=== PATIENT | male | born 1980 | race Caucasian/White ===

== ENCOUNTER 2016-11-03 23:23 | Emergency (ER) | payer OTHER ==
[~2016-11-03] VITALS: Ht 172.7 cm; Wt 113.4 kg
[~2016-11-03 23:23] MED LIST: ARIP10TA2 PO; DIVA-20; GENT3.5O18 OD; HYDR-3714 PO; LISI10TA PO; NAPR-243 PO; OMEP-10 PO; OMEP20CA12 PO; PRAZ5CAP PO; SIMV40TA2; VENL75CA55 PO; ZOLP10TA PO
[2016-11-03] MEDS ORDERED: TRIA15OI9 TP (23:59)
[2016-11-03] MEDS ORDERED: PRD20T PO (23:59)
[2016-11-03] MEDS ORDERED: CEPH-507 PO (23:59)
[2016-11-04] MEDS ORDERED: predniSONE 10 MG TAB PO ONE
[2016-11-04] MEDS ORDERED: TETANUS,DIPTH,PERTUSS P/F (BOOSTRIX) 0.5 ML VIAL IM ONE
--- NOTE | 2016-11-04 | ED Integumentary General ---
General Chief Complaint: Bite-Animal/Human/Insect Stated Complaint: POSS SPIDER BITE Nursing Triage Note: Patient reports spider bite to R posterior thigh Source: patient, RN notes reviewed Exam Limitations: no limitations History of Present Illness Time seen by provider: 23:50 Initial Comments Patient presents c/ his significant other c/ c/o having just been bitten by a spider while in bed. [place] it bite him on the back of his right thigh. Brought the spider in c/ him. Does not appear to be either a Black or Brown spider by appearance. Site of bite does itch a little but otherwise he is asymptomatic. Timing/Duration: just prior to arrival Location: extremities (right posterior thigh) Possible Cause: insect bite Modifying Factors: improves with other (none) Associated Symptoms: other (mild itching and a little redness @ bite site) Allergies and Home Medications Allergies Coded Allergies: Iodine (Unverified Allergy, 08/20/10) fish oil (Verified Allergy, 02/01/12) Home Medications Cephalexin 500 Mg Capsule, 1,000 MG PO BID, #30 Ref 0 Prescribed by: SAM VALLE on 11/03/162358 Prednisone 20 Mg Tab, 30 MG PO BID, #12 Ref 0 Prescribed by: SAM VALLE on 11/03/162358 Triamcinolone Acetonide 15 Gm Oint, 1 APPLIC TP BID, #30 Ref 0 Prescribed by: SAM VALLE on 11/03/162358 Constitutional: see HPI Skin: see HPI, other (red, itchy area posterior right thigh) All Other Systems Reviewed Negative Unless Noted: Yes (Negative excepted noted.) Past Foheorc-Okctmx-Acjvsf Hx Patient Social History Alcohol Use: Denies Use Recreational Drug Use: No 2nd Hand Smoke Exposure: No Recent Foreign Travel: No Contact w/Someone Who Travel: No Recent Infectious Disease Expo: No Immunizations Up To Date Date of Pneumonia Vaccine: Mar 03, 2008 Seasonal Allergies Seasonal Allergies: No Surgeries HX Surgeries: No Surgeries: Vasectomy Respiratory Hx Respiratory Disorders: No Cardiovascular Hx Cardiac Disorders: Yes Cardiac Disorders: Hypertension Neurological Hx Neurological Disorders: No Genitourinary Hx Genitourinary Disorders: No Gastrointestinal Hx Gastrointestinal Disorders: Yes Gastrointestinal Disorders: Gastroesophageal Reflux Musculoskeletal Hx Musculoskeletal Disorders: No Endocrine Hx Endocrine Disorders: No HEENT HX ENT Disorders: No Cancer Hx Cancer: No Psychosocial Hx Psychiatric Problems: Yes Behavioral Health Disorders: PTSD Integumentary HX Skin/Integumentary Disorder: Yes Skin/Integumentary Disorders: Psoriasis Blood Transfusions Hx Blood Disorders: No Physical Exam Vital Signs Vital Sign - Last 12Hours 11/03/16 23:46 Temp 98.2 Pulse 77 Resp 18 B/P (MAP) 135/81 Pulse Ox 97 Capillary Refill : Less Than 3 Seconds General Appearance: WD/WN, no apparent distress Cardiovascular: regular rate, rhythm Respiratory: no respiratory distress Extremities: other (quarter sized red area c/ apparent inoculation site in the center c/w an insect bite or sting. Does kem.) Neurologic/Psychiatric: alert, normal mood/affect, oriented x 3 Skin: warm/dry Skin Problem Location: lower extremities (right posterior thigh) Skin Problem Character: blanching, erythema Progress/Results/Core Measures Results/Orders My Orders Orders - SAM VALLE DO Cephalexin Capsule (Keflex Capsule) (11/04/16 00:00) Prednisone Tablet (Deltasone Tablet) (11/04/16 00:00) Dipht,Pertuss(Acell),Tet Adult (Boostrix (11/04/16 00:00) Prednisone Tablet (Deltasone Tablet) (11/04/16 00:15) Medications Given in ED Current Medications Medications Dose Ordered Sig/Lexx Route Start Time Stop Time Status Last Admin Dose Admin Cephalexin HCl 1,000 mg ONCE ONCE PO 11/04/16 00:00 11/04/16 00:01 UNV 11/04/16 00:10 1,000 MG Diphtheria/ Tetanus/Acell Pertussis 0.5 ml ONCE ONCE IM 11/04/16 00:00 11/04/16 00:01 DC 11/04/16 00:11 0.5 ML Prednisone 60 mg ONCE ONCE PO 11/04/16 00:15 11/04/16 00:16 11/04/16 00:10 60 MG Vital Signs/I&O Vital Sign - Last 12Hours 11/03/16 23:46 Temp 98.2 Pulse 77 Resp 18 B/P (MAP) 135/81 Pulse Ox 97 Blood Pressure Mean: 99 Departure Impression Impression: Primary Impression: Spider bite wound Disposition: 01 HOME, SELF-CARE Condition: Stable Departure-Patient Inst. Decision time for Depature: 23:57 Referrals: SORAIDA BRAY MD Patient Instructions: Insect Bites and Stings (DC) Scripts Triamcinolone Acetonide (Triamcinolone Acetonide 0.5% Ointment) 15 Gm Oint 1 APPLIC TP BID for SPIDER BITE, #30 TUBE 0 Refills Prov: SAM VALLE DO 11/03/16 Prednisone (Prednisone) 20 Mg Tab 30 MG PO BID, #12 TAB 0 Refills Prov: SAM VALLE DO 11/03/16 Cephalexin (Keflex) 500 Mg Capsule 1000 MG PO BID, #30 CAP 0 Refills Prov: SAM VALLE DO 11/03/16 SAM VALLE DO Nov 04, 2016 00:00
[2016-11-04] MEDS ORDERED: predniSONE 20 MG TAB ONE (00:03)
[2016-11-04] MEDS ORDERED: CEPHALEXIN 250 MG (KEFLEX) CAP PO ONE ×2 (00:04)
[2016-11-04 00:14] VITALS: BP 135/81
[2016-11-04] MEDS ORDERED: predniSONE 20 MG TAB PO ONE (00:15)
== END 2016-11-04 00:14 | disposition home or self-care (01) ==
LOC: EDUNIT# 23:23 → ER 23:26
DX: T63.391A Toxic effect of venom of other spider, accidental (unintentional), initial encounter (principal)
CPT/HCPCS: 90471; 90715; 99283

== ENCOUNTER → 2017-05-01 | Outpatient (REF) ==
[~2017-05-01] MED LIST changes: +CEPH-507 PO; +PRD20T PO; +TRIA15OI9 TP
--- NOTE | 2017-05-01 10:14 | Diagnostic Imaging Report ---
EXAMINATION: 3 views of the right hand. INDICATION: Injury to the right fourth finger. FINDINGS: There is no fracture or dislocation seen. Minimal degenerative changes with osteophyte early formation at the PIP and DIP joints is seen. No radiopaque foreign body. Deformity suggestive of old injury to the distal aspect of the fifth metacarpal is noted. IMPRESSION: No acute process. Dictated by: Dictated on workstation # [id number]
== END | disposition home or self-care (01) ==
LOC: OCC 09:47
PROVIDERS: ATTEND Nurse Practitioner Family
CPT/HCPCS: 73140

== ENCOUNTER → 2017-08-29 | Outpatient (CLI) | payer SELFPAY ==
[2017-08-29 10:57] LABS: BASOPHILS % (AUTO) 0 % (0-10); EOSINOPHILS # (AUTO) 0.1 10^3/uL (0.0-0.3); EOSINOPHILS % (AUTO) 1 % (0-10); HEMATOCRIT 47 % (40-54); HEMOGLOBIN 16.2 G/DL (13.3-17.7); LYMPHOCYTES # (AUTO) 3.1 X 10^3 (1.0-4.0); LYMPHOCYTES % (AUTO) 32 % (12-44); MEAN CORPUSCULAR HEMOGLOBIN 29 PG (25-34); MEAN CORPUSCULAR HGB CONC 35 G/DL (32-36); MEAN CORPUSCULAR VOLUME 84 FL (80-99); MEAN PLATELET VOLUME 11.9 FL (7.4-10.4); MONOCYTES # (AUTO) 0.7 X 10^3 (0.0-1.0); MONOCYTES % (AUTO) 7 % (0-12); NEUTROPHILS # (AUTO) 5.7 X 10^3 (1.8-7.8); NEUTROPHILS % (AUTO) 60 % (42-75); PLATELET COUNT 249 10^3/uL (130-400); RED BLOOD COUNT 5.55 10^6/uL (4.35-5.85); WHITE BLOOD COUNT 9.5 10^3/uL (4.3-11.0)
[2017-08-29 11:22] LABS: MYOGLOBIN SERUM 44.5 NG/ML (10.0-92.0)
[2017-08-29 11:37] LABS: ERYTHROCYTE SEDIMENTATION RATE 2 MM/HR (0-15)
--- NOTE | 2017-08-29 11:44 | Diagnostic Imaging Report ---
INDICATION: Obstructive sleep apnea. COMPARISON: 02/01/2012. FINDINGS: Two views of the chest are obtained. Heart size is normal. The pulmonary vessels appear unremarkable. There is no pneumothorax, mediastinal widening or pleural fluid. Lungs are clear. The osseous structures unremarkable. IMPRESSION: No acute abnormalities demonstrated. Dictated by: Dictated on workstation # [id number]
== END ==
LOC: CARD 10:37
PROVIDERS: ATTEND Internal Medicine Cardiovascular Disease
DX: R07.89 Other chest pain (principal); R06.09 Other forms of dyspnea; I10 Essential (primary) hypertension; E66.9 Obesity, unspecified; G47.33 Obstructive sleep apnea (adult) (pediatric)
CPT/HCPCS: 36415; 71046; 83874; 84484; 85025; 85652; 93017; 93306

== ENCOUNTER → 2018-03-11 | Outpatient (REF) ==
--- NOTE | 2018-03-11 14:54 | Diagnostic Imaging Report ---
INDICATION: Right arm pain. Three views were obtained. 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 No fracture dislocation. Right lung is clear. IMPRESSION: Arthrosis of the acromioclavicular joint otherwise unremarkable. Dictated by: Dictated on workstation # [id number]
== END | disposition home or self-care (01) ==
LOC: RAD 14:10
PROVIDERS: ATTEND Nurse Practitioner Family
CPT/HCPCS: 73030

== ENCOUNTER 2018-07-07 06:11 | Emergency (ER) | payer OTHER ==
[~2018-07-07] VITALS: Ht 172.7 cm; Wt 115.7 kg
[2018-07-07] MEDS ORDERED: ORPHENADRINE 60 MG/2 ML (NORFLEX) AMP IM STA (06:36)
[2018-07-07] MEDS ORDERED: KETOROLAC 60 MG/2 ML VIAL IM STA (06:36)
--- OUTSIDE RECORDS SUMMARY | 2018-07-07 06:41 | XMS REPORT ---
Author Author BENITO QUIJANO [facility] Address [address] [place] [address] Care Team Providers Care Lettuce Cutter Name Role Phone BENITO QUIJANO Unavailable PROBLEMS Type Condition ICD9-CM Code [id number] Code Onset Dates Condition Status SNOMED Code Problem Blood in stool 578.1 Active 982008460 Problem Influenza with other respiratory manifestations 487.1 Active 7526864 Problem Hematemesis 578.0 Active 6146179 Problem Mixed hyperlipidemia E78.2 Active 899272116 Problem Other atopic dermatitis and related conditions 691.8 Active 945487569 Problem GERD without esophagitis K21.9 Active 481945198 Problem Periodontitis K05.30 Active 66795739 Problem Essential hypertension I10 Active 45627347 Problem Acute upper respiratory infections of unspecified site 465.9 Active 18549003 Problem Sleep apnea in adult G47.30 Active 27757719 Problem PTSD (post-traumatic stress disorder) F43.10 Active 18051189 ALLERGIES Substance Reaction Event Type Date Status contrast medium hives Non Drug Allergy Aug, Active fish oil hives Non Drug Allergy Aug, Active ENCOUNTERS Encounter Location Date Diagnosis [facility] [id number] [id number] Sep, Mixed hyperlipidemia E78.2 [facility] [id number] [place] [id number] Sep, Essential hypertension I10 ; BMI 40.0-44.9, adult Z68.41 and GERD without esophagitis K21.9 [facility] [id number] [place] [id number] Aug, Influenza-like illness R69 and BMI 40.0-44.9, adult Z68.41 [facility] [id number] [place] [address] [id number] Mar, [facility] [id number] [phone] Mar, Essential hypertension I10 [facility] [id number] [place] [phone] Feb, Dental examination Z01.20 and Periodontitis K05.30 [facility] [id number] [id number] Nov, Dermatitis L30.9 [facility] [id number] [place] [address] [id number] Aug, Essential hypertension I10 ; PTSD (post-traumatic stress disorder) F43.10 and Sleep apnea in adult G47.30 [facility] [id number] [place] [phone] Aug, [facility] [id number] [place] [address]- [phone] Sep, [facility] [id number] [place] [address]- [phone] Sep, [facility] [id number] [phone] Dec, [facility] [id number] [place] [address] 9232 Dec, [facility] [id number] [phone] Jun, [facility] [id number] [place] [address]- [phone] Jun, [facility] [id number][place] [id number] Mar, [facility] [id number] [place] [address]- [address] Mar, [facility] [id number] [place] [phone] [phone] Mar, [facility] [id number] [place] [address] [phone]- [phone] Mar, [facility] [address] [facility]NOTE 3] [id number] [place] [address] Mar, [facility] [address] [facility]NOTE 3] [id number] [place] [address] Mar, [facility] [address] [facility]NOTE 3] [id number] [place] [address] Mar, IMMUNIZATIONS No Known Immunizations SOCIAL HISTORY Never Assessed REASON FOR VISIT Fever up to 102 yesterday, cough with clear sputum, right ear pain, body ache with occas headache all for past 3 days--maia RN PLAN OF CARE Activity Details Follow Up if s/s not improving with PCP or in Clinic Reason: VITAL SIGNS Height 68 in 2017-08-14 Weight 264 lbs 2017-08-14 Temperature 98.0 degrees Fahrenheit 2017-08-14 Heart Rate 93 bpm 2017-08-14 Respiratory Rate 16 2017-08-14 BMI 40.14 kg/m2 2017-08-14 Blood pressure systolic 142 mmHg 2017-08-14 Blood pressure diastolic 100 mmHg 2017-08-14 MEDICATIONS Medication Instructions Dosage Frequency Start Date End Date Duration Status Lisinopril 40 mg Orally Once a day 1 tablet 24h Mar, 0 days Active RESULTS No Results PROCEDURES No Known procedures INSTRUCTIONS MEDICATIONS ADMINISTERED No Known Medications MEDICAL (GENERAL) HISTORY Type Description Date Medical History PTSD Medical History hypertension Medical History Sleep apnea-has CPAP-nasal pillows Surgical History benign skin tumor excision sternum area 1992 Surgical History vasectomy 2002 Surgical History vasectomy reversal 2016 Hospitalization History PTSD 2008
--- OUTSIDE RECORDS SUMMARY | 2018-07-07 06:41 | XMS REPORT ---
Author Author BENITO QUIJANO [facility] Address [address] [place] [address] Care Team Providers Care Carpenter Assistant Installer Name Role Phone BENITO QUIJANO Unavailable PROBLEMS Type Condition ICD9-CM Code [id number] Code Onset Dates Condition Status SNOMED Code Problem Blood in stool 578.1 Active 497414454 Problem Influenza with other respiratory manifestations 487.1 Active 3954549 Problem Hematemesis 578.0 Active 7405876 Problem Mixed hyperlipidemia E78.2 Active 456115530 Problem Other atopic dermatitis and related conditions 691.8 Active 850926836 Problem GERD without esophagitis K21.9 Active 982644609 Problem Periodontitis K05.30 Active 21197998 Problem Essential hypertension I10 Active 21532996 Problem Acute upper respiratory infections of unspecified site 465.9 Active 24729472 Problem Sleep apnea in adult G47.30 Active 06091647 Problem PTSD (post-traumatic stress disorder) F43.10 Active 39224653 ALLERGIES No Information ENCOUNTERS Encounter Location Date Diagnosis [facility] [id number] [phone] Sep, Mixed hyperlipidemia E78.2 [facility] [id number] [place] [phone] Sep, Essential hypertension I10 ; BMI 40.0-44.9, adult Z68.41 and GERD without esophagitis K21.9 [facility] [id number] [place] [address] [id number] Aug, Influenza-like illness R69 and BMI 40.0-44.9, adult Z68.41 [facility] [id number] [place] [address] [id number] Mar, [facility] [address] [id number] Mar, Essential hypertension I10 [facility] [address] [address] Feb, 2017 Dental examination Z01.20 and Periodontitis K05.30 [facility] [id number] [id number] Nov, Dermatitis L30.9 [facility] [id number] [place] [address] [id number] Aug, Essential hypertension I10 ; PTSD (post-traumatic stress disorder) F43.10 and Sleep apnea in adult G47.30 [facility] [id number] [place] [address] Aug, [facility] [id number] [place] [address] 21284- 9916 Sep, [facility] [id number] [place] [address] 59784- 5345 Sep, [facility] [id number] [place] [address] [id number] Dec, [facility] [id number] [place] [address] 37475- 2086 Dec, [facility] [id number] [place] [address] [phone] Jun, [facility] [id number] [place] [address] 53771- 1283 Jun, [facility] [id number] [place] [address] [id number] Mar, [facility] [id number] [place] [address] 16964- 6194 Mar, [facility] [id number] [place] [address] 89143- 5682 Mar, [facility] [id number] [place] [address] 09272- 6482 Mar, [facility] [id number] [place] [address] 815017- 3921 Mar, [facility] [address] [facility] [id number] [place] [address] Mar, [facility] [address] [facility] [id number] [place] [address] Mar, IMMUNIZATIONS No Known Immunizations SOCIAL HISTORY Never Assessed REASON FOR VISIT Wanting Excuse Note PLAN OF CARE VITAL SIGNS MEDICATIONS Unknown Medications RESULTS No Results PROCEDURES No Known procedures INSTRUCTIONS MEDICATIONS ADMINISTERED No Known Medications MEDICAL (GENERAL) HISTORY Type Description Date Medical History PTSD Medical History hypertension Medical History Sleep apnea-has CPAP-nasal pillows Surgical History benign skin tumor excision sternum area 1992 Surgical History vasectomy 2002 Surgical History vasectomy reversal 2016 Hospitalization History PTSD 2008
--- OUTSIDE RECORDS SUMMARY | 2018-07-07 06:41 | XMS REPORT ---
Author Author KD VIRK [facility] Address [address] [place] [address] Care Team Providers Care Parks Recreation Director Name Role Phone KD VIRK Unavailable PROBLEMS Type Condition ICD9-CM Code [id number] Code Onset Dates Condition Status SNOMED Code Problem GERD without esophagitis K21.9 Active 449961031 Problem Periodontitis K05.30 Active 49279722 Problem Essential hypertension I10 Active 70938218 Problem Sleep apnea in adult G47.30 Active 39827872 Problem PTSD (post-traumatic stress disorder) F43.10 Active 72525826 ALLERGIES Substance Reaction Event Type Date Status fish oil hives Non Drug Allergy Apr, Active contrast medium hives Non Drug Allergy Apr, Active ENCOUNTERS Encounter Location Date Diagnosis [facility] [address] [id number] May, [address] [id number] Apr, Upper respiratory infection J06.9 ; Essential hypertension I10 and BMI 40.0-44.9, adult Z68.41 [facility] [address] [id number] Sep, Mixed hyperlipidemia E78.2 [facility] [id number] [place] [id number] Sep, Essential hypertension I10 ; BMI 40.0-44.9, adult Z68.41 and GERD without esophagitis K21.[address] [id number] Aug, Influenza-like illness R69 and BMI 40.0-44.9, adult Z68.41 [id number] [place] [id number] Mar, [address] [id number] Mar, Essential hypertension I10 [facility] [address], [place] [address] 05 Feb, 2017 Dental examination Z01.20 and Periodontitis K05.30 [facility] [id number] [id number] Nov, Dermatitis L30.9 [facility] [id number] [place] [address] [phone] Aug, Essential hypertension I10 ; PTSD (post-traumatic stress disorder) F43.10 and Sleep apnea in adult G47.[address] [facility] [id number] [place] [address]- [phone] Aug, [facility] [id number] [place] [address] 72989- [phone] Sep, [facility] [id number] [place] [address]25- 3920 Sep, [facility] [id number] [place] [address] [id number] Dec, [facility] [id number] [place] [address] [phone]- [phone] Dec, [facility] [id number] [place] [address] [id number] Jun, [facility] [address], [place] [address] Jun, [facility] [id number] [place] [address] [id number] Mar, [facility] [id number] [place] [address] [phone]- 6840 Mar, [facility] [id number] [place] [address] 50671- 9336 Mar, [facility] [id number] [place] [address] 62627- [phone] Mar, [facility] [id number] [place] [address], [place] [address] Mar, [facility] [address] [facility] [id number] [place] [address] Mar, [facility] [address] [facility] [id number] [place] [address] Mar, IMMUNIZATIONS No Known Immunizations SOCIAL HISTORY Never Assessed REASON FOR VISIT congestion/swollen tonsils for 5 days Neha THOMAS PLAN OF CARE Activity Details Follow Up 4 Weeks, prn Reason:Establish Care/BP VITAL SIGNS Height 68 in 2018-04-28 Weight 265.0 lbs 2018-04-28 Temperature 98.2 degrees Fahrenheit 2018-04-28 Heart Rate 100 bpm 2018-04-28 Respiratory Rate 18 2018-04-28 Oximetry 98 % 2018-04-28 BMI 40.29 kg/m2 2018-04-28 Blood pressure systolic 148 mmHg 2018-04-28 Blood pressure diastolic 80 mmHg 2018-04-28 MEDICATIONS Medication Instructions Dosage Frequency Start Date End Date Duration Status Lisinopril 40 mg Orally Once a day 1 tablet 24h Active Tessalon Perles 100 mg Orally Three times a day 1 capsule as needed 8h Apr, 7 days Active Protonix 40 MG Orally Once a day 1 tablet 24h Active ProAir HFA 108 (90 Base) MCG/ACT Inhalation every 6 hrs 2 puffs as needed 6h Apr, 14 days Active PredniSONE 20 mg Orally Once a day 1 tablet 24h Apr, 5 days Active Zyrtec Allergy 10 mg Orally Once a day 1 tablet 24h Apr, 30 day (s) Active RESULTS No Results PROCEDURES No Known procedures INSTRUCTIONS MEDICATIONS ADMINISTERED No Known Medications MEDICAL (GENERAL) HISTORY Type Description Date Medical History PTSD Medical History hypertension Medical History Sleep apnea-has CPAP-nasal pillows Surgical History benign skin tumor excision sternum area 1992 Surgical History vasectomy 2001 Surgical History vasectomy reversal 2016 Hospitalization History PTSD 2007
--- OUTSIDE RECORDS SUMMARY | 2018-07-07 06:41 | XMS REPORT ---
Author Author BENITO QUIJANO [facility] Address [address] [place] [address] Care Team Providers Care Spanish Speaking Nanny Name Role Phone BENITO QUIJANO Unavailable PROBLEMS Type Condition ICD9-CM Code JCP61-XO Code Onset Dates Condition Status SNOMED Code Problem Blood in stool 578.1 Active 419257763 Problem Influenza with other respiratory manifestations 487.1 Active 0124484 Problem Hematemesis 578.0 Active 9424597 Problem Mixed hyperlipidemia E78.2 Active 930106866 Problem Other atopic dermatitis and related conditions 691.8 Active 473918000 Problem GERD without esophagitis K21.9 Active 211933891 Problem Periodontitis K05.30 Active 57067667 Problem Essential hypertension I10 Active 39671514 Problem Acute upper respiratory infections of unspecified site 465.9 Active 82647841 Problem Sleep apnea in adult G47.30 Active 41461960 Problem PTSD (post-traumatic stress disorder) F43.10 Active 76790652 ALLERGIES Substance Reaction Event Type Date Status contrast medium hives Non Drug Allergy Sep, Active fish oil hives Non Drug Allergy Sep, Active ENCOUNTERS Encounter Location Date Diagnosis [facility] [address] [id number] [id number] Sep, Mixed hyperlipidemia E78.2 [facility] [id number] [place] [id number] Sep, Essential hypertension I10 ; BMI 40.0-44.9, adult Z68.41 and GERD without esophagitis K21.9 [facility] [id number] [place] [address] [id number] 14 Aug, 2017 Influenza-like illness R69 and BMI 40.0-44.9, adult Z68.41 [facility] [id number] [place] [address] [id number] Mar, [facility] [id number] [phone] Mar, Essential hypertension I10 [facility] [id number] [place] [address] 2546 Feb, Dental examination Z01.20 and Periodontitis K05.30 [facility] [id number][place] [id number] Nov, Dermatitis L30.9 [facility] [id number] [place] [address] [id number] Aug, Essential hypertension I10 ; PTSD (post-traumatic stress disorder) F43.10 and Sleep apnea in adult G47.30 [facility] [id number] [place] [address] 39[address]- 2966 Aug, [facility] [id number] [place] [address] 79259- 6919 Sep, [facility] [id number] [place] [address] 39903- 4551 Sep, [facility] [id number], [place] [id number] Dec, [facility] [id number] [place] [address] 21325- 1672 Dec, [facility] [id number], [place] [id number] Jun, [facility] [id number] [place] [address] 92220- 6374 Jun, [facility] [id number], [place] [id number] Mar, [facility] [id number] [place] [address] 15260- 5936 Mar, [facility] [id number] [place] [address] 52752- 8936 Mar, [facility] [id number] [place] [address] 755825- 9947 Mar, [facility] [address] [facility] [id number] [place] [address] Mar, [facility] [address] [facility] [id number] [place] [address] Mar, [facility] [address] [facility] [id number] [place] [address] Mar, IMMUNIZATIONS No Known Immunizations SOCIAL HISTORY Never Assessed REASON FOR VISIT lab order deferred PLAN OF CARE VITAL SIGNS MEDICATIONS Unknown [...]
--- OUTSIDE RECORDS SUMMARY | 2018-07-07 06:41 | XMS REPORT ---
Author Author BENITO QUIJANO [facility] Address [address] [place] [address] Care Team Providers Care Billet Inspector Name Role Phone BENITO QUIJANO Unavailable PROBLEMS Type Condition ICD9-CM Code MLF23-CI Code Onset Dates Condition Status SNOMED Code Problem Blood in stool 578.1 Active 555806889 Problem Influenza with other respiratory manifestations 487.1 Active 0521457 Problem Hematemesis 578.0 Active 6747423 Problem Mixed hyperlipidemia E78.2 Active 303594949 Problem Other atopic dermatitis and related conditions 691.8 Active 284106253 Problem GERD without esophagitis K21.9 Active 109187666 Problem Periodontitis K05.30 Active 98159747 Problem Essential hypertension I10 Active 15988048 Problem Acute upper respiratory infections of unspecified site 465.9 Active 35220040 Problem Sleep apnea in adult G47.30 Active 95207650 Problem PTSD (post-traumatic stress disorder) F43.10 Active 27840604 ALLERGIES Substance Reaction Event Type Date Status contrast medium hives Non Drug Allergy Sep, Active fish oil hives Non Drug Allergy Sep, Active ENCOUNTERS Encounter Location Date Diagnosis [facility] [address] [id number] [id number] Sep, Mixed hyperlipidemia E78.2 [facility] [id number] [place] [address] [id number] Sep, Essential hypertension I10 ; BMI 40.0-44.9, adult Z68.41 and GERD without esophagitis K21.9 [facility] [id number] [place] [address] [id number] 14 Aug, 2017 Influenza-like illness R69 and BMI 40.0-44.9, adult Z68.41 [facility] [id number] [place] [address] [id number] Mar, [facility] [id number], [place] [id number] Mar, Essential hypertension I10 [facility] [id number] [place] [address] 2546 Feb, Dental examination Z01.20 and Periodontitis K05.30 [facility] [id number], [place] [id number] Nov, Dermatitis L30.9 [facility] [id number] [place] [address] [id number] Aug, Essential hypertension I10 ; PTSD (post-traumatic stress disorder) F43.10 and Sleep apnea in adult G47.30 [facility] [id number] [place] [address] 34991- 5946 Aug, [facility] [id number] [place] [address] 91599- 8022 Sep, [facility] [id number] [place] [address] 58379- 6394 Sep, [facility] [id number], [place] [id number] Dec, [facility] [id number] [place] [address] 64693- 3088 Dec, [facility] [id number], [place] [id number] Jun, [facility] [id number] [place] [address] 67331- 1726 Jun, [facility] [id number], [place] [id number] Mar, [facility] [id number] [place] [address] 23872- 5652 Mar, [facility] [id number] [place] [address] 38964- [phone] Mar, [facility] [id number] [place] [address] 315281- 3416 Mar, [facility] [address] [facility] [id number] [place] [address] Mar, [facility] [address] [facility] [id number] [place] [address] Mar, [facility] [address] [facility] [id number] [place] [address] Mar, IMMUNIZATIONS No Known Immunizations SOCIAL HISTORY Never Assessed REASON FOR VISIT Hypertension follow up Neha THOMAS PLAN OF CARE Activity Details Follow Up 6 Months, prn Reason:CHM HTN VITAL SIGNS Height 68 in 2017-09-09 Weight 266.4 lbs 2017-09-09 Temperature 97.9 degrees Fahrenheit 2017-09-09 Heart Rate 88 bpm 2017-09-09 Respiratory Rate 18 2017-09-09 BMI 40.50 kg/m2 2017-09-09 Blood pressure systolic 128 mmHg 2017-09-09 Blood pressure diastolic 80 mmHg 2017-09-09 MEDICATIONS Medication Instructions Dosage Frequency Start Date End Date Duration Status Protonix 40 MG Orally Once a day 1 tablet 24h Active Lisinopril 40 mg Orally Once a day 1 tablet 24h 0 days Active RESULTS No Results PROCEDURES Procedure Date Ordered Result Body Site MICROALBUMIN, SEMIQUANT September 09, 2017 LIPID PANEL September 09, 2017 COMPLETE CBC W/AUTO DIFF WBC September 09, 2017 COMPREHEN METABOLIC PANEL September 09, 2017 VENIPUNCT, ROUTINE* September 09, 2017 ASSAY THYROID STIM HORMONE September 09, 2017 INSTRUCTIONS MEDICATIONS ADMINISTERED No Known Medications MEDICAL (GENERAL) HISTORY Type Description Date Medical History PTSD Medical History hypertension Medical History Sleep apnea-has CPAP-nasal pillows Surgical History benign skin tumor excision sternum area 1992 Surgical History vasectomy 2001 Surgical History vasectomy reversal 2016 Hospitalization History PTSD 2007
--- OUTSIDE RECORDS SUMMARY | 2018-07-07 06:42 | XMS REPORT ---
Author Author BENITO QUIJANO [facility] Address [address] [place] [address] Care Team Providers Care Clinical Specialty Rep Name Role Phone BENITO QUIJANO Unavailable PROBLEMS Type Condition ICD9-CM Code FHT32-WP Code Onset Dates Condition Status SNOMED Code Problem Blood in stool 578.1 Active 222434248 Problem Influenza with other respiratory manifestations 487.1 Active 0815488 Problem Hematemesis 578.0 Active 9655068 Problem Mixed hyperlipidemia E78.2 Active 610475026 Problem Other atopic dermatitis and related conditions 691.8 Active 089144576 Problem GERD without esophagitis K21.9 Active 380819319 Problem Periodontitis K05.30 Active 14261272 Problem Essential hypertension I10 Active 91039916 Problem Acute upper respiratory infections of unspecified site 465.9 Active 31852974 Problem Sleep apnea in adult G47.30 Active 06295500 Problem PTSD (post-traumatic stress disorder) F43.10 Active 89895840 ALLERGIES Substance Reaction Event Type Date Status contrast medium hives Non Drug Allergy Mar, Active fish oil hives Non Drug Allergy Mar, Active ENCOUNTERS Encounter Location Date Diagnosis [facility] [address] [id number] [address] Sep, Mixed hyperlipidemia E78.2 [facility] [id number] [place] [address] [phone] Sep, Essential hypertension I10 ; BMI 40.0-44.9, adult Z68.41 and GERD without esophagitis K21.9 [facility] [id number] [place] [address] [id number] 14 Aug, 2017 Influenza-like illness R69 and BMI 40.0-44.9, adult Z68.41 [facility] [id number] [place] [address] [id number] Mar, [facility] [id number] [place] [phone] Mar, Essential hypertension I10 [facility] [id number] [place] [address] 77591 2546 Feb, Dental examination Z01.20 and Periodontitis K05.30 [facility] [id number] [place] [id number] Nov, Dermatitis L30.9 [facility] [id number] [place] [address] [id number] Aug, Essential hypertension I10 ; PTSD (post-traumatic stress disorder) F43.10 and Sleep apnea in adult G47.30 [facility] [id number] [place] [address] 39900- 6586 Aug, [facility] [id number] [place] [address] 83758- 1747 Sep, [facility] [id number] [place] [address] 96390- 0018 Sep, [facility] [place] [id number] [place] [phone] Dec, [facility] [id number] [place] [address] 50806- 9382 Dec, [facility] [place] [id number] [place] [phone] Jun, [facility] [id number] [place] [address] 36758- 2405 Jun, [facility] [place] [id number] [place] [phone] Mar, [facility] [id number] [place] [address] 88586- 6306 Mar, [facility] [id number] [place] [address] 25944- 6396 Mar, [facility] [id number] [place] [address] [phone]- 2327 Mar, [facility] [address] [facility] [id number] [place] [address] Mar, [facility] [address] [facility] [id number] [place] [address] Mar, [facility] [address] [facility] [id number] [place] [address]- [address] Mar, IMMUNIZATIONS No Known Immunizations SOCIAL HISTORY Never Assessed REASON FOR VISIT CH- 6 month f[facility] CARE Activity Details Follow Up 6-12 Months or sooner as needed Reason:CHM HTN VITAL SIGNS Height 68 in 2017-03-20 Weight 256.8 lbs 2017-03-20 Temperature 97 degrees Fahrenheit 2017-03-20 Heart Rate 90 bpm 2017-03-20 Respiratory Rate 18 2017-03-20 BMI 39.04 kg/m2 2017-03-20 Blood pressure systolic 140 mmHg 2017-03-20 Blood pressure diastolic 90 mmHg 2017-03-20 MEDICATIONS Medication Instructions Dosage Frequency Start Date [...]
--- OUTSIDE RECORDS SUMMARY | 2018-07-07 06:42 | XMS REPORT ---
Author Author BENITO QUIJANO Organization [facility] Address [address] [place] [address] Care Team Providers Care Classroom Paraprofessional Name Role Phone BENITO QUIJANO Unavailable PROBLEMS Type Condition ICD9-CM Code RMP02-UO Code Onset Dates Condition Status SNOMED Code Problem Other atopic dermatitis and related conditions 691.8 Active 039458909 Problem Hematemesis 578.0 Active 7687488 Problem Blood in stool 578.1 Active 919076678 Problem Periodontitis K05.30 Active 08202832 Problem Sleep apnea in adult G47.30 Active 74641088 Problem Acute upper respiratory infections of unspecified site 465.9 Active 23509062 Problem Influenza with other respiratory manifestations 487.1 Active 8797949 Problem PTSD (post-traumatic stress disorder) F43.10 Active 97864983 Problem Essential hypertension I10 Active 31051400 ALLERGIES Substance Reaction Event Type Date Status contrast medium hives Non Drug Allergy Aug, Active fish oil hives Non Drug Allergy Aug, Active SOCIAL HISTORY Never Assessed PLAN OF CARE Activity Details Follow Up 6 Months Reason:CHM HTN VITAL SIGNS Height 68 in 2016-08-28 Weight 258.4 lbs 2016-08-28 Temperature 98.4 degrees Fahrenheit 2016-08-28 Heart Rate 82 bpm 2016-08-28 Respiratory Rate 16 2016-08-28 BMI 39.29 kg/m2 2016-08-28 Blood pressure systolic 122 mmHg 2016-08-28 Blood pressure diastolic 80 mmHg 2016-08-28 MEDICATIONS Medication Instructions Dosage Frequency Start Date End Date Duration Status Lisinopril 20 MG Orally Once a day 1 tablet 24h 0 Active RESULTS No Results PROCEDURES No Known procedures IMMUNIZATIONS No Known Immunizations MEDICAL (GENERAL) HISTORY Type Description Date Medical History PTSD Medical History hypertension Medical History Sleep apnea-has CPAP-nasal pillows Surgical History benign skin tumor excision sternum area 1992 Surgical History vasectomy 2001 Surgical History vasectomy reversal 2016 Hospitalization History PTSD 2008
--- OUTSIDE RECORDS SUMMARY | 2018-07-07 06:42 | XMS REPORT | Continuity of Care Document ---
Author Author [facility] Organization [facility] Address [facility] [address] [place] [address] Phone Unavailable Support Name Relationship Address Phone FADIA SY D.O. Caregiver [address] [place] [address] DELIA ROMAINE Next Of Kin [address] [place] [address] Insurance Providers Payer Name Policy Number Subscriber Name Relationship Self Pay Insurance Sin Ramos 18 Self / Same As Patient Advance Directives Directive Response Recorded Date/Time Advance Directives No 01/26/15 9:08am Living Will No 01/26/15 9:08am Health Care Proxy No 01/26/15 9:08am Power of Raspberry Checker for Health Care No 01/26/15 9:08am Organ, Tissue, or Eye Donor No 01/26/15 9:08am Do you have a signed organ donor card? No 01/26/15 9:08am Chief Complaint and Reason for Visit Chief Complaint GI BLEED Reason for Visit [id number] Problems Active Problems Medical Problem Onset Date Status Internal hemorrhoid Unknown Acute Medications Current Home Medications Medication Dose Units Route Directions Days/Qty Instructions Start Date Lisinopril (Zestril 20 Mg Tab*) 20 Mg 20 Mg Oral Daily 30 01/26/15 Hydrocortisone/Pramoxine 10 Gm 10 Gm Rectal Bedtime 1 01/26/15 Social History Social History Problem Response Recorded Date/Time Employment Employed 01/26/2015 9:39am Hospital Discharge Instructions No hospital discharge instructions. Plan of Care Discharge Date 01/26/15 9:45am Disposition 01 HOME, CORRECTION,ASSISTED LIVING Condition at Discharge Stable Instructions/Education Provided Hemorrhoids (ED) Prescriptions See Medication Section Additional Instructions/Education If the bleeding is not controlled completely within 2-3 days make an appointment to see your doctor for colonoscopy Functional Status No functional status results. Allergies, Adverse Reactions, Alerts No known allergies. Immunizations No immunization records. Vital Signs No known vital signs results. Results No known relevant diagnostic tests, laboratory data and/or discharge summary. Procedures No known history of procedures. Encounters Encounter Location Arrival/Admit Date Discharge/Depart Date Attending Provider Departed Emergency Room [place] 01/26/15 9:10am 01/26/15 9:45am FADIA SY D.O. Recent Diagnosis
--- OUTSIDE RECORDS SUMMARY | 2018-07-07 06:42 | XMS REPORT ---
Author Author DAVID PICHARDO [facility] Address [address] [place] [address] Care Team Providers Care Recreational Vehicle Repairer Name Role Phone DAVID PICHARDO Unavailable PROBLEMS Type Condition ICD9-CM Code IPP75-LY Code Onset Dates Condition Status SNOMED Code Problem Blood in stool 578.1 Active 304690742 Problem Influenza with other respiratory manifestations 487.1 Active 3462330 Problem Hematemesis 578.0 Active 9697295 Problem Mixed hyperlipidemia E78.2 Active 471318071 Problem Other atopic dermatitis and related conditions 691.8 Active 580757502 Problem GERD without esophagitis K21.9 Active 108458636 Problem Periodontitis K05.30 Active 55928110 Problem Essential hypertension I10 Active 84987834 Problem Acute upper respiratory infections of unspecified site 465.9 Active 84501304 Problem Sleep apnea in adult G47.30 Active 59269011 Problem PTSD (post-traumatic stress disorder) F43.10 Active 16926273 ALLERGIES Substance Reaction Event Type Date Status contrast medium hives Non Drug Allergy Feb, Active fish oil hives Non Drug Allergy Feb, Active ENCOUNTERS Encounter Location Date Diagnosis [facility] [id number] [place] [address]648- 8692 Sep, Mixed hyperlipidemia E78.2 [id number] [place] [address] [phone] Sep, Essential hypertension I10 ; BMI 40.0-44.9, adult Z68.41 and GERD without esophagitis K21.9 [id number] [place] [address] [phone] Aug, Influenza-like illness R69 and BMI 40.0-44.9, adult Z68.41 [facility] [address] [phone] Mar, [address] [place] [phone] Mar, Essential hypertension I10 [facility] [address] [place] [address] 92322- 4386 Feb, Dental examination Z01.20 and Periodontitis K05.30 [facility] [id number] [place] [address] [phone] Nov, Dermatitis L30.9 [facility] [id number] [place] [address] [phone] Aug, Essential hypertension I10 ; PTSD (post-traumatic stress disorder) F43.10 and Sleep apnea in adult G47.[address] [facility] [id number] [place] [address] 79025- 2165 Aug, [facility] [id number] [place] [address] 39324- 4466 Sep, [facility] [id number] [place] [address] 39942- 5164 Sep, [facility] [id number] [place] [address] [phone] Dec, [facility] [id number] [place] [address] 17025- 6376 Dec, [facility] [id number] [place] [address] [phone] Jun, [facility] [address] [place] [address] 59211- 5217 Jun, [facility] [id number] [place] [address] [phone] Mar, [facility] [id number] [place] [address] 541261- 4910 Mar, [facility] [id number] [place] [address] 92126- 3926 Mar, [facility] [id number] [place] [address] 39122- 4636 Mar, [facility] [address] [id number] [place] [address]- 42[address] Mar, [facility] [address] [facility] [id number] [place] [address] Mar, [facility] [address] [facility] [id number] [place] [address]- 5916 Mar, IMMUNIZATIONS No Known Immunizations SOCIAL HISTORY Never Assessed REASON FOR VISIT Dental Debridement PLAN OF CARE Activity Details Follow Up prn Reason:BALDEV/SRP VITAL SIGNS MEDICATIONS Medication Instructions Dosage Frequency Start Date End Date Duration Status Lisinopril 20 MG Orally Once a day 1 tablet 24h 0 Active RESULTS No Results PROCEDURES Procedure Date Ordered Result Body Site INTRAORL-PERIAPICAL 1 FILM 63321 Feb 05, 2017 INTRAORL-PERIAPICAL EA ADD FILM Feb 05, 2017 Full mouth debridement Feb 05, 2017 BITEWINGS - FOUR FILMS Feb 05, 2017 INTRAORL-PERIAPICAL EA ADD FILM Feb 05, 2017 INTRAORL-PERIAPICAL EA ADD FILM Feb 05, 2017 INTRAORL-PERIAPICAL EA ADD FILM Feb 05, 2017 INTRAORL-PERIAPICAL EA ADD FILM Feb 05, 2017 INSTRUCTIONS MEDICATIONS ADMINISTERED No Known Medications MEDICAL (GENERAL) HISTORY Type Description Date Medical History PTSD Medical History hypertension Medical History Sleep apnea-has CPAP-nasal pillows Surgical History benign skin tumor excision sternum area 1992 Surgical History vasectomy 2002 Surgical History vasectomy reversal 2016 Hospitalization History PTSD 2008
--- NOTE | 2018-07-07 06:47 | ED General ---
General Chief Complaint: Upper Extremity Stated Complaint: RT SHOULDER PAIN Nursing Triage Note: PT STATES THAT TODAY IN THE SHOWER HE EXPERIENCED NEW ONSET PAIN IN HIS RIGHT SCAPULAR AREA WHERE THE PT REPORTS HAVING A WORKMANS COMP INJURY. PT VERBALIZES PAIN THROUGHOUT OVERHEAD ROM, TENDER TO THE TOUCH Nursing Sepsis Screen: No Definite Risk Source of Information: Patient Exam Limitations: No Limitations History of Present Illness Date Seen by Provider: Jul 07, 2018 Time Seen by Provider: 06:28 Initial Comments Here with complaint of pain to the right upper back area and right shoulder. Onset while taking a shower. He is injured this area previously. States hurts when he moves his arm. Does have spasm-like pain that comes and goes. Denies any recent injury although did injure that area approximately 2 months ago Timing/Duration: 1 Hour Severity: Moderate Modifying Factors: improves with Immobilization; worse with Movement Associated Systoms: No Chest Pain, No Fever/Chills; Shortness of Air (with pain ); No Weakness Allergies and Home Medications Allergies Coded Allergies: fish oil (Verified Allergy, Unknown, 11/04/16) iodine (Unverified Allergy, Unknown, 11/04/16) Home Medications Cephalexin 500 Mg Capsule, 1,000 MG PO BID Prescribed by: SAM VALLE on 11/03/162358 Prednisone 20 Mg Tab, 30 MG PO BID Prescribed by: SAM VALLE on 11/03/162358 Triamcinolone Acetonide 15 Gm Oint, 1 APPLIC TP BID Prescribed by: SAM VALLE on 11/03/162358 Patient Home Medication List Home Medication List Reviewed: Yes Review of Systems Review of Systems Constitutional: no symptoms reported Respiratory: see HPI; No cough Cardiovascular: No chest pain, No edema Musculoskeletal: see HPI, back pain, muscle pain, muscle stiffness; No muscle weakness Psychiatric/Neurological: No Symptoms Reported Past [id number]-[id number]-[id number] Hx Past Med/Social Hx: Reviewed Nursing Past Med/Soc Hx Patient Social History Alcohol Use: Denies Use Recreational Drug Use: No Smoking Status: Never a Smoker 2nd Hand Smoke Exposure: No Recent Foreign Travel: No Contact w/Someone Who Travel: No Recent Infectious Disease Expo: No Immunizations Up To Date Date of Pneumonia Vaccine: Mar 03, 2008 Seasonal Allergies Seasonal Allergies: No Past Medical History Surgeries: Yes Vasectomy Respiratory: No Cardiac: Yes Hypertension Neurological: No Gastrointestinal: Yes Gastroesophageal Reflux Musculoskeletal: No Endocrine: No Cancer: No Psychosocial: Yes PTSD Integumentary: Yes Psoriasis Blood Disorders: No Family Medical History Reviewed Nursing Family Hx Physical Exam Vital Signs Vital Signs - First Documented 07/07/18 06:24 Temp 96.8 Pulse 83 Resp 20 B/P (MAP) 135/81 (99) Pulse Ox 98 O2 Delivery Room Air Capillary Refill : Less Than 3 Seconds Height, Weight, BMI Height: 5'8.00" Weight: 255lbs. oz. 115.551836xn; 42.28 BMI Method:Stated General Appearance: No Apparent Distress, WD/WN Neck: Full Range of Motion, Normal Inspection, Non Tender, Supple Respiratory: Lungs Clear, Normal Breath Sounds Cardiovascular: Regular Rate, Rhythm, No Murmur Back: No Vertebral Tenderness; Other (tender in the area between the scapula and spine on the right side. able reproduce pain. Spasm noted to musculature in this area.) Neurologic/Psychiatric: Alert, Oriented x3 Skin: Normal Color, Warm/Dry Progress/Results/Core Measures Suspected Sepsis Recent Fever Within 48 Hours: No Infection Criteria Present: None New/Unexplained Altered Menta: No Sepsis Screen: No Definite Risk SIRS Temperature:96.8 Pulse: 83 Respiratory Rate: 20 Blood Pressure 135 /81 Mean: 99 Results/Orders My Orders Orders - LAM GO MD Ketorolac Injection (Toradol Injection) (07/07/18 06:36) Orphenadrine Injection (Norflex Injectio (07/07/18 06:36) Vital Signs/I&O 07/07/18 06:24 Temp 96.8 Pulse 83 Resp 20 B/P (MAP) 135/81 (99) Pulse Ox 98 O2 Delivery Room Air Capillary Refill : Less Than 3 Seconds Blood Pressure Mean: 99 Progress Note : Progress Note Seen and evaluated. Norflex 60 mg IM and Toradol 60 mg IM. Discharged home with return precautions. Patient verbalized understanding instructions and agreement with plan. Departure Impression Primary Impression: Rhomboid muscle pain Disposition: HOME, SELF-CARE Condition: Stable Departure-Patient Inst. Decision time for Depature: 06:54 Referrals: NO,LOCAL PHYSICIAN (PCP/Family) Primary Care Physician Patient Instructions: Muscle Strain (DC) Add. Discharge Instructions: All discharge instructions reviewed with patient and/or family. Voiced understanding. You may take ibuprofen 600 mg every 8 hours as needed for pain. You may take Tylenol/acetaminophen 1000 mg every 8 hours as needed for pain. You may use [id number] preparations such as icy hot with lidocaine or Aspercreme of lidocaine or similar to the area of concern per package directions. You may use ice packs or ice massage therapist concern 20 minutes per hour as needed to reduce the spasms as well. Follow-up with your Dr. in a few days for recheck. Return for worse pain, breathing problems, weakness, numbness of the arm or other concerns as needed. Scripts Cyclobenzaprine HCl (Cyclobenzaprine HCl) 10 Mg Tablet 10 MG PO Q8H PRN for SPASMS, #15 TAB 0 Refills Prov: LAM GO MD 07/07/18 LAM GO MD Jul 07, 2018 06:47
[2018-07-07] MEDS ORDERED: CYCL10TA9 PO (06:58)
[2018-07-07 07:10] VITALS: BP 135/81
== END 2018-07-07 07:10 | disposition home or self-care (01) ==
LOC: EDUNIT# 06:11 → ER 06:14
DX: M54.6 Pain in thoracic spine (principal); I10 Essential (primary) hypertension; K21.9 Gastro-esophageal reflux disease without esophagitis; F43.10 Post-traumatic stress disorder, unspecified; Z91.041 Radiographic dye allergy status; Z79.52 Long term (current) use of systemic steroids; Z98.52 Vasectomy status
CPT/HCPCS: 99282